=== PATIENT | male | born 1960 | race Hispanic/Latino ===

== ENCOUNTER 2017-06-16 10:04 | Emergency (ER) | payer OTHER ==
--- NOTE | 2017-06-16 10:35 | ED PDOC ---
Arrival/HPI - General Chief Complaint: Cardiac Arrest Time Seen by Provider: 06/16/17 10:31 Historian: EMS - History of Present Illness Associated Symptoms (Text): 06/16/17 10:31 Patient was a witnessed arrest at home while eating this morning. 911 was called and the fire department responded and began CPR. Medics then arrived and found the patient in ventricular fibrillation. He was treated with defibrillation 4. There was no response. Patient was intubated in the field. CPR was continued. He was treated with amiodarone IV and multiple doses of epinephrine IV. He remained unresponsive with no pulse and no blood pressure and CPR was continued and the patient was brought to the emergency department. In the emergency department CPR was continued. Patient was treated with additional epinephrine. He was found to be in EMD with no pulse and no blood pressure and an occasional ventricular beat on the monitor. He was pronounced at 10:15 AM. CPR was begun in the field at 9:22 AM. Family/Social History Family/Social History: Unknown Family HX Disposition/Present on Arrival - Present on Arrival Any Indicators Present on Arrival: No History of DVT/PE: No History of Uncontrolled Diabetes: No Urinary Catheter: No History of Decub. Ulcer: No - Disposition Have Diagnosis and Disposition been Completed?: Yes Diagnosis: Cardiac arrest Disposition: WITH WITHOUT AUTOPSY Disposition Time: 10:34 Condition: Forms: [employer] ([place])
[2017-06-16 10:45] VITALS: PULSE 0; RESP 0; TEMP 95.1
== END 2017-06-16 13:34 ==
LOC: ED 10:04
DX: I46.9 Cardiac arrest, cause unspecified (principal)